=== PATIENT | male | born 1945 | race Caucasian/White ===

== ENCOUNTER 2016-12-05 22:16 | Emergency (ER) | payer MEDICARE, BC ==
[2016-12-05 22:32] VITALS: BP 149/82
[2016-12-05] MEDS ORDERED: Ondansetron 4 MG Tab.DIS PO ONE (22:55)
--- NOTE | 2016-12-05 22:58 | EDM.PDOC ---
[id number] Complaint: VOMITING BLOOD Time Seen by Provider: 12/05/16 22:40 Source of Information: Reports: Patient, Family History Limitations: Reports: No Limitations - History of Present Illness INITIAL COMMENTS - FREE TEXT/NARRATIVE: 71-year-old male had several episodes of emesis tonight with some hematemesis. He has had this in the past as well but tonight he feels more bloated and having some abdominal discomfort. He is on Coumadin for atrial fibrillation, his INR was just checked and was therapeutic, no changes. He denies any significantly dark stools. No shortness of breath, chest pain, epistaxis or easy bruising. No recent trauma. Bowels are moving. Onset: Unknown/Unsure Duration: Waxing/Waning Severity: Mild Associated Symptoms: Reports: Malaise, Nausea/Vomiting, Other (hematemesis). Denies: Fever/Chills, Shortness of Breath - Related Data Allergies Allergy/AdvReac Type Severity Reaction Status Date / Time Sulfa (Sulfonamide Allergy Hives Verified 12/05/16 22:21 Antibiotics) Home Meds: Home Meds Cephalexin [Keflex] 500 mg PO ASDIRECTED 12/05/16 [History] Digoxin 12/05/16 [History] Digoxin 0.25 mg PO ASDIRECTED 12/05/16 [History] Docusate Sodium [Colace] 100 mg PO DAILY 12/05/16 [History] Fluticasone Propionate [Flonase Allergy Relief] 1 spray IN DAILY 12/05/16 [ History] Gabapentin [Neurontin] 100 mg PO ASDIRECTED 12/05/16 [History] Ipratropium [place] 1 spray IN DAILY 12/05/16 [History] Lisinopril 10 mg PO DAILY 12/05/16 [History] Metoprolol Succinate [Toprol Xl] 100 mg PO DAILY 12/05/16 [History] Omeprazole 40 mg PO DAILY 12/05/16 [History] Pravastatin [Pravachol] 40 mg PO BEDTIME 12/05/16 [History] Warfarin [Coumadin] 2.5 mg PO WEEKLY 12/05/16 [History] Warfarin [Coumadin] 5 mg PO ASDIRECTED 12/05/16 [History] Past Medical History HEENT History: Reports: Impaired Vision Cardiovascular History: Reports: Afib Respiratory History: Reports: Asthma Gastrointestinal History: Reports: GERD, Hemorrhoids - Past Surgical History HEENT Surgical History: Reports: Adenoidectomy, Tonsillectomy GI Surgical History: Reports: Colonoscopy Social & Family History - Tobacco Use Smoking Status *Q: Never Smoker - Recreational Drug Use Recreational Drug Use: No ED ROS GENERAL - Review of Systems Review Of Systems: See Below Constitutional: Denies: Fever, Chills HEENT: Reports: No Symptoms Respiratory: Denies: Shortness of Breath Cardiovascular: Denies: Chest Pain : Reports: No Symptoms Musculoskeletal: Reports: No Symptoms Skin: Reports: No Symptoms Psychiatric: Reports: No Symptoms ED EXAM, GI/ABD - Physical Exam Exam: See Below Exam Limited By: No Limitations General Appearance: Alert, No Apparent Distress Eyes: Bilateral: Normal Appearance Respiratory/Chest: No Respiratory Distress, Lungs Clear Cardiovascular: Irregularly Irregular GI/Abdominal Exam: Normal Bowel Sounds, Soft, Distended (Feels somewhat bloated and distended), Tender (Minimal tenderness around the left periumbilical area no guarding or rebound) Rectal (Males) Exam: Normal Exam Extremities: Normal Inspection Neurological: Alert, Oriented Psychiatric: Flat Affect Skin Exam: Warm, Dry Course - Vital Signs Last Recorded V/S: Last Vital Signs Temp 97.8 F 12/05/16 22:40 Pulse 59 L 12/05/16 22:40 Resp 16 12/05/16 22:40 BP 149/82 H 12/05/16 22:40 Pulse Ox 96 12/05/16 22:40 - Orders/Labs/Meds Labs: Laboratory Tests 12/05/16 12/05/16 Range/Units 22:54 23:10 WBC 13.1 H (4.5-11.0) K/uL RBC 5.40 (4.30-5.90) M/uL Hgb 15.8 H (12.0-15.0) g/dL Hct 45.4 (40.0-54.0) % MCV 84 (80-98) fL MCH 29 (27-31) pg MCHC 35 (32-36) % Plt Count 217 (150-400) K/uL Neut % (Auto) 85 H (36-66) % Lymph % (Auto) 5 L (24-44) % [place] % (Auto) 8 H (2-6) % Eos % (Auto) 2 (2-4) % Baso % (Auto) 0 (0-1) % Sodium 141 (140-148) mmol/L Potassium 4.1 (3.6-5.2) mmol/L Chloride 105 (100-108) mmol/L Carbon Dioxide 28 (21-32) mmol/L Anion Gap 8.4 (5.0-14.0) mmol/L BUN 23 H (7-18) mg/dL Creatinine 1.1 (0.8-1.3) mg/dL Est Cr Clr Drug Dosing 63.50 mL/min Estimated GFR (MDRD) > 60 (>60) Glucose 124 H (74-106) mg/dL Calcium 8.6 (8.5-10.1) mg/dL Total Bilirubin 0.7 (0.2-1.0) mg/dL AST 23 (15-37) U/L ALT 37 (12-78) U/L Alkaline Phosphatase 90 (46-116) U/L Total Protein 7.5 (6.4-8.2) g/dL Albumin 3.4 (3.4-5.0) g/dL Globulin 4.1 H (2.3-3.5) g/dL Albumin/Globulin Ratio 0.8 L (1.2-2.2) Meds: Medications Discontinued Medications Generic Name Dose Route Start Last Admin Trade Name Freq PRN Reason Stop Dose Admin Ondansetron HCl 4 mg 12/05/16 22:55 12/05/16 22:59 Zofran Odt PO 12/05/16 22:56 4 mg ONETIME ONE Administration - Re-Assessments/Exams Free Text/Narrative Re-Assessment/Exam: 12/05/16 22:57 Stool guaiac was obtained as well as a CBC and CMP. Patient was given 4 mg of sublingual Zofran to help with nausea. 12/05/16 23:40 Labs were reassuring, including a normal hemoglobin and negative stool guaiac. Extended chemistry profile was relatively normal. Patient had no more active vomiting while in the emergency room. He'll be discharged with some additional doses of Zofran and encouraged to follow up with his primary provider when he gets home. Departure - Departure Time of Disposition: 23:57 Disposition: Home, Self-Care 01 Condition: Good Clinical Impression: Hematemesis with nausea - Discharge Information Instructions: Nausea and Vomiting, Adult, [id number] Referrals: PCP,None [Primary Care Provider] - Forms: ED Department Discharge Care Plan Goals: Continue your current medications, and use Zofran for nausea as directed if needed. Consider a daily dose of omeprazole, 20 mg, to protect the stomach. I would recommend a recheck with your primary provider when you get home. Return anytime sooner if worsening or concerns.
== END 2016-12-05 23:56 | disposition home or self-care (01) ==
LOC: JP.ED 22:16
DX: K92.0 Hematemesis (principal); R11.0 Nausea; H54.7 Unspecified visual loss; I48.91 Unspecified atrial fibrillation; J45.909 Unspecified asthma, uncomplicated; K21.9 Gastro-esophageal reflux disease without esophagitis; Z98.890 Other specified postprocedural states; Z88.2 Allergy status to sulfonamides; Z79.899 Other long term (current) drug therapy
CPT/HCPCS: 36415; 80053; 82272; 85025; 99284; A9270; 99283